=== PATIENT | male | born 1965 | race Caucasian/White ===

== ENCOUNTER 2016-09-12 14:25 | Emergency (ER) | payer BC ==
[2016-09-12 14:39] VITALS: BP 116/74
--- NOTE | 2016-09-12 14:49 | UC ---
Skin Complaint HPI - HPI Summary HPI Summary: The patient comes in today for: 1. Rash: Onset: "a few days." Palliative/provocative: "Cortisone 10" OTC helped. Quality: Sometimes itchy. Region: Backs of hands and the palm of his right hand. Severity: No pain (0/10) Time: Constant. Associated symptoms: Event: He bought some gloves recently (end of July), and he started using them at that time. Previous disease: "a couple of years ago he had a similar rash in between his fingers along the sides and of the right palm." He used a steroid cream ( prescription) but he does not remember the name. He got immediate benefit. Exposure: No other exposures other than the gloves. He uses [employer] for his dishes and he uses shampoo for his body wash. * - History of Current Complaint Chief Complaint: [facility]CSkin Time Seen by Provider: 09/12/16 14:36 Stated Complaint: SKIN COMPLAINT Hx Obtained From: Patient - Allergy/Home Medications Allergies/Adverse Reactions: Allergies Allergy/AdvReac Type Severity Reaction Status Date / Time Bee Venom Allergy Swelling Verified 09/12/16 14:39 Latex Allergy Rash Verified 09/12/16 14:38 Home Medications: Home Medications Aspirin [Aspirin Childrens] 81 mg PO DAILY 09/12/16 [History Confirmed 09/12/16] Atorvastatin* [Lipitor 40 MG*] 40 mg PO QPM 09/12/16 [History Confirmed 09/12/16 ] Hydrocortisone (Topical) [Cortizone-10] 1 % EX DAILY PRN 09/12/16 [History Confirmed 09/12/16] Metoprolol Succinate [Toprol Xl] 50 mg PO DAILY 09/12/16 [History Confirmed ] Sacubitril-Valsartan [Entresto 24-26 mg] 1 tab PO BID 09/12/16 [History Confirmed 09/12/16] Ticagrelor* [Brilinta 90 MG*] 90 mg PO BID 09/12/16 [History Confirmed 09/12/16] Review of Systems Constitutional: Negative Skin: Rash Eyes: Negative ENT: Negative Respiratory: Negative Cardiovascular: Negative Gastrointestinal: Negative Genitourinary: Negative All Other Systems Reviewed And Are Negative: Yes PMH/Surg Hx/FS Hx/Imm Hx Previously Healthy: No Endocrine History Of: Reports: Dyslipidemia Denies: Diabetes, Thyroid Disease, Hyperthyroidism, Hypothyroidism Cardiovascular History Of: Reports: Cardiac Disorders - OR was May of 2016 , Hypertension, Congestive Heart Failure Denies: Pacemaker/ICD, Myocardial Infarction, Atrial Fibrillation, Deep Vein Thrombosis, Bleeding Disorders Respiratory History Of: Denies: COPD, Asthma, Bronchitis, Pneumonia, Pulmonary Embolism GI/ History Of: Denies: Gastroesophageal Reflux, Ulcer, Gastrointestinal Bleed, Gall Bladder Disease, Kidney Stones, Diverticulitis, Renal Disease, Urosepsis Neurological History Of: Denies: TIA, CVA, Dementia, Seizures, Migraine Psychological History Of: Denies: Anxiety, Depression, Bipolar Disorder, Schizophrenia, Post Traumatic Stress Disorder Cancer History Of: Denies: Lung Cancer, Colorectal Cancer, Breast Cancer, Prostate Cancer, Cervical Cancer Other History Of: Anticoagulant Therapy - Daily aspirin. Negative For: HIV, Hepatitis B, Hepatitis C - Surgical History Surgical History: None - Family History Known Family History: Positive: Cardiac Disease Negative: Hypertension - Social History Occupation: Employed Full-time Alcohol Use: Occasionally Substance Use Type: None Smoking Status (MU): Former Smoker Type: Cigars When Did the Patient Quit Smoking/Using Tobacco: 6 MOS Physical Exam Triage Information Reviewed: Yes Appearance: Well-Appearing, No Pain Distress, Well-Nourished Vital Signs: Initial Vital Signs Temp 98.5 F 09/12/16 14:33 Pulse 84 09/12/16 14:33 Resp 16 09/12/16 14:33 BP 116/74 09/12/16 14:33 Pulse Ox 98 09/12/16 14:33 Vital Signs Reviewed: Yes Eyes: Positive: Conjunctiva Clear. Negative: Discharge ENT: Positive: Hearing grossly normal. Negative: Pharyngeal erythema, Nasal congestion, Nasal drainage, TM bulging, TM dull, TM red, Tonsillar swelling, Tonsillar exudate Dental: Negative: Gross Decay/Caries @, Dental Fracture @ Neck: Positive: Supple, Nontender, No Lymphadenopathy. Negative: Nuchal Rigidity Respiratory: Positive: Lungs clear, No respiratory distress, No accessory muscle use. Negative: Crackles, Wheezing Cardiovascular: Positive: RRR, No Murmur Abdomen Description: Positive: Nontender, No Organomegaly, Soft. Negative: Distended, Guarding, Peritoneal Signs Musculoskeletal: Positive: Strength Intact, ROM Intact, No Edema Neurological: Positive: Alert, Muscle Tone Normal Psychological: Positive: Age Appropriate Behavior, Consolable Skin: Positive: rashes - The patient has an erythematous, scaling rash on the back of his hands, and in between and along the sides of the fingers. There is also some "dry" appearing skin between his left thumb and index finger mostly along the skin lines. Course/Dx - Differential Diagnoses - Skin Complaint Differential Diagnoses: Drug Rash, Impetigo, Urticaria - Diagnoses Provider Diagnoses: Pompholyx Discharge - Discharge Plan Condition: Stable Disposition: HOME Patient Education Materials: Eczema (ED) Referrals: Song Best, [Primary Care Provider] - 1 Week (Please see your primary care provider in about a week to see how well you are doing. If you get worse, please be seen sooner.)
== END 2016-09-12 15:17 | disposition home or self-care (01) ==
LOC: UCCORT 14:25
DX: L30.1 Dyshidrosis [pompholyx] (principal); I10 Essential (primary) hypertension; E78.5 Hyperlipidemia, unspecified; Z87.891 Personal history of nicotine dependence; Z79.82 Long term (current) use of aspirin; Z79.01 Long term (current) use of anticoagulants
CPT/HCPCS: 99202; G0463